=== PATIENT | male | born 1955 | race Caucasian/White ===

== ENCOUNTER 2016-12-16 19:27 | Emergency (ER) | payer SELFPAY | END 2016-12-16 20:45 | disposition other institution (70) | LOC: FER 19:27 | DX: S64.491A Injury of digital nerve of left index finger, initial encounter (principal); S60.451A Superficial foreign body of left index finger, initial encounter; J45.909 Unspecified asthma, uncomplicated; F17.210 Nicotine dependence, cigarettes, uncomplicated; Z88.6 Allergy status to analgesic agent | CPT/HCPCS: 99285 ==